=== PATIENT | female | born 1955 | race African-American/Black ===

== ENCOUNTER 2016-12-28 19:24 | Emergency (ER) | payer OTHER ==
[~2016-12-28 19:24] MED LIST: ALLEGRA-D1 TAB.SR2 PO; ALPRAZOLAM0.5 MG PO; AMOXICILLIN PO; AMOXICILLIN500 M1 PO; ATARAX PO; AUGMENTIN PO; AUGMENTIN875 MG PO; BENTYL20 MG PO; COLACE PO; DICLOFENAC PO; DIPHENHYDRAMINE50 MG PO; FLEXERIL10 M1 PO; FLEXERIL10 MG PO; FLONASE16 GM; IBUPROFEN800 MG PO; INDOMETHACIN25 MG PO; K-DUR20 ME1 PO; MEDROL DOSEPAK4 MG PO; MIRALAX17 G1 PO; MIRALAX17 GM DOB; NORCO 5/325 TAB1 TAB PO; PERCOCET PO; PHENERGAN25 MG PO; PREDNISONE PO; VICODIN 5/500 T1 TAB PO; XANAX0.5 MG PO
== END 2016-12-28 21:59 | disposition home or self-care (01) ==
LOC: CED 19:24
DX: K59.00 Constipation, unspecified (principal); I10 Essential (primary) hypertension; F17.200 Nicotine dependence, unspecified, uncomplicated
CPT/HCPCS: 99283

== ENCOUNTER 2017-01-09 20:16 | Emergency (ER) | payer OTHER | END 2017-01-09 23:46 | disposition home or self-care (01) | LOC: CED 20:16 | DX: F41.0 Panic disorder [episodic paroxysmal anxiety] (principal); I10 Essential (primary) hypertension; F31.9 Bipolar disorder, unspecified; F17.210 Nicotine dependence, cigarettes, uncomplicated; Z90.710 Acquired absence of both cervix and uterus; Z90.89 Acquired absence of other organs; Z98.51 Tubal ligation status | CPT/HCPCS: 96372; 99284; J1200 ==

== ENCOUNTER 2017-01-13 10:52 | Emergency (ER) | payer OTHER | END 2017-01-13 12:08 | disposition left against medical advice (07) | LOC: CED 10:52 | DX: F31.9 Bipolar disorder, unspecified (principal); F41.9 Anxiety disorder, unspecified | CPT/HCPCS: 99283 ==

== ENCOUNTER 2017-01-16 19:38 | Emergency (ER) | payer OTHER ==
[2017-01-16 21:19] LABS: BUN/CREATININE RATIO 11.42; CALCIUM SERUM 9.7 mg/dL (8.4-10.2); CREATININE SERUM 0.7 mg/dL (0.6-1.4); GLOM FILT RATE Estimated 109.9 mL/min (>60)
[2017-01-16 21:20] LABS: POTASSIUM 2.8 mmol/L (3.5-5.1)
== END 2017-01-16 22:17 | disposition home or self-care (01) ==
LOC: CED 19:38
PROVIDERS: Emergency Medicine
DX: F41.1 Generalized anxiety disorder (principal); E87.6 Hypokalemia; I10 Essential (primary) hypertension; F17.200 Nicotine dependence, unspecified, uncomplicated; F31.9 Bipolar disorder, unspecified
CPT/HCPCS: 36415; 80048; 80178; 99283

== ENCOUNTER 2017-01-20 17:00 | Inpatient (IN) | payer OTHER ==
--- NOTE | ~2017-01-20 | PN ---
Unit #: [id number] #: [id number] Patient: BARBARA NIELSEN [id number] [facility] [address] [place] [address] [id number] I MR#: [id number] NAME: BARBARA NIELSEN ROOM: P132 Age: Sex: F Admission Date: 01/20/2017 : 1955 Attending Physician: Steven León M.D. Admitting Physician: Steven León M.D. Primary Care Physician: David Jaquez Jr., A.PBrannonRLigia LUTZ PROGRESS NOTES ATTN. DR. LEÓN : THE COMPLETE DICTATION WAS NOT RECEIVED BY ACCOUNTING ADVISORY SERVICES MANAGER. PLEASE DICTATE THE REMAINDER AN ADDENDUM. IF YOU HAVE ANY QUESTIONS, PLEASE CONTACT THE ACCOUNTING ADVISORY SERVICES MANAGER OFFICE AT [phone]. WE APOLOGIZE FOR THE INCONVENIENCE. DATE January 23, 2017 DISCUSSION Ms. Nielsen is a 61-year-old female, with mood disorder, and psychosis, who was seen today and chart was reviewed and the case was discussed with the staff. She has been doing fairly well with no agitation or irritability, but has been needing constant redirection, she has not shown any agitation, or aggression. The patient has been taking the medications and tolerating them fairly well. MENTAL STATUS EXAMINATION Middle-aged female DICTATION ENDED ABRUPTLY Dictated by... Steven León M.D. LA/srikanth TD: 01/24/2017 08:30 JOB #: [id number] NELDA PROGRESS NOTES Page 1 of 1 X Steven León MD X PROGRESS NOTE
--- NOTE | ~2017-01-20 | DS ---
Unit #: [id number] #: [id number] Patient: BARBARA NIELSEN [id number] [facility] [place] [address] [id number] I MR#: [id number] NAME: BARBARA NIELSEN ROOM: [facility] Age: 61 Sex: F Admission Date: 01/20/2017 : 1955 Discharge Date: 01/24/2017 Attending Physician: Steven León M.D. Primary Care Physician: David Jaquez Jr., A.P.R.N. DISCHARGE SUMMARY IDENTIFYING DATA Ms. Nielsen is a 61-year-old single female, who is a resident of [place], [place], and was brought to the hospital by her family. DISCHARGE DIAGNOSES Psychiatric: Bipolar disorder, most recent episode manic, with psychosis. Medical: Dyslipidemia. Stressors: Moderate psychosocial stressors. HISTORY OF PRESENT ILLNESS Please see initial psychiatric evaluation for details. PAST PSYCHIATRIC HISTORY Please see initial psychiatric evaluation for details. PAST MEDICAL HISTORY Please see initial psychiatric evaluation for details. HOSPITAL COURSE The patient was admitted to the adult psychiatric unit at [facility] and was oriented to the hospital environment. Routine p.r.n. medications were initiated, and she was started back on her home medications and medications were adjusted as the patient was seen to be manic and psychotic and as such, Seroquel was increased to 100 mg and lithium was also increased to 450 mg b.i.d., and she was closely monitored. She was taking the medications regularly and was tolerating them fairly well and was able to show a decent and therapeutic response with improvement of kurt and psychosis. No agitation or aggression was noted and the patient was not seen to be danger to self or anyone else, and as such, it was decided that she will be discharged home and will continue treatment on an outpatient basis. DISCHARGE MEDICATIONS Ucon 450 mg b.i.d. and Seroquel 100 mg at bedtime. DISCHARGE CONDITION Stable. PROGNOSIS Fair. Dictated by... Unit #: [id number] #: [id number] Patient: BARBARA NIELSEN Steven León M.D. IAA/modl TD: 01/25/2017 02:02 JOB #: [id number] DISCHARGE SUMMARY Page 1 of 1 X Steven León MD DISCHARGE SUMMARY
--- NOTE | ~2017-01-20 | PA ---
Unit #: [id number] #: [id number] Patient: BARBARA NIELSEN [id number] [facility] [address] [place] [address] [id number] I MR#: [id number] NAME: BARBARA NIELSEN ROOM: 32 Age: 61 Sex: F Admission Date: 01/20/2017 : 1955 Date of Assessment: 01/21/2017 Attending Physician: Steven León M.D. Admitting Physician: Steven León M.D. Primary Care Physician: David Jaquez Jr., A.P.R.N. PSYCHIATRIC ASSESSMENT DATE OF SERVICE 01/21/2017. IDENTIFYING DATA Ms. Nielsen is a 61-year-old single female, who is a resident of [place], [place], and was brought to the hospital by her family. CHIEF COMPLAINT "I've bipolar disorder." HISTORY OF PRESENT ILLNESS Ms. Nielsen is a 61-year-old female with history of bipolar disorder, who was brought into the hospital by her family and the patient stated that she has bipolar disorder and medications were changed about 15 days ago while she was at the [facility] and since then, she has been home and she has been crying daily and has not been able to complete daily living tasks and she stated that she has been aggressive with the family and saying things that hurts her feelings and stated that she has not been able to sleep regularly. She stated that she is afraid to eat because she is afraid that it will not come out of her body and stated that this morning she woke up and her mind left and stated that she did not know who she was and was fearful that her mind would not return. The patient stated that her mind came back a short time later and she was thankful. She was seen to be acutely psychotic and in a manic state with pressured speech, flight of ideas, looseness of associations, significant delusional behavior and was not functioning very well, and as such, a recommendation for inpatient level of care for safety and stabilization was made and the patient was transferred to us. SUBSTANCE ABUSE HISTORY The patient denies any history of alcohol or drug abuse. PAST PSYCHIATRIC HISTORY The patient has had a history of inpatient psychiatric hospitalization at [facility] and other facilities, and currently, has been seeing Dr. Palm on an outpatient basis, and review of the medical records indicate that she is on a combination of psychotropic medications, but does not appear to be showing a therapeutic response to the medications. PAST MEDICAL HISTORY The patient's medical history is significant for chronic pain and Unit #: [id number] #: [id number] Patient: BARBARA NIELSEN dyslipidemia. PERSONAL AND SOCIAL HISTORY A 61-year-old female, who reports that she is single, unemployed, and lives at home by herself and has poor social support system. MENTAL STATUS EXAMINATION Middle-aged -[place] female, who was casually dressed with fair personal hygiene, appears to be in no acute distress or discomfort. She was awake and alert with impaired attention and concentration. Her mood was anxious with a congruent affect. Her speech was slow and restricted in content. Her thought processes were disorganized with some looseness of associations and flight of ideas and paranoid ideations and delusional behavior. Her insight and judgment remain significantly impaired. DIAGNOSTIC IMPRESSION Psychiatric: Bipolar disorder, most recent episode manic and acute psychosis. Medical: Dyslipidemia and chronic pain. Stressors: Moderate psychosocial stressors. TREATMENT PLAN 1. The patient has presented with a history of mood disorder and psychosis and has been decompensating and will need inpatient hospitalization for safety and stabilization. We will start her back on her home medications. We will adjust the medications and monitor response. 2. Supportive therapy was provided to the patient. 3. Safe, structured, and nourishing environment will be provided. ESTIMATED LENGTH OF STAY 5 to 7 days. ABILITY TO HELP SELF Limited. WILLINGNESS TO HELP SELF The patient appears to be willing to help self. STRENGTHS 1. Communicative. 2. Cooperative. PROBLEMS 1. Chronic dysphoric symptoms. 2. Poor social support system. DISCHARGE CRITERIA This will be contingent upon the patient's ability to show resolution of her kurt and psychosis and her ability to stay safe to herself, particularly after discharge from the hospital. Dictated by... Marcus Fine/jsoh Unit #: [id number] #: [id number] Patient: BARBARA NIELSEN TD: 01/21/2017 13:25 JOB #: [id number] PSYCHIATRIC ASSESSMENT Page 1 of 1 X Steven León MD PSYCHIATRIC ASSESSMENT
--- NOTE | ~2017-01-20 | PN ---
Unit #: [id number] #: [id number] Patient: BARBARA NIELSEN [id number] [facility] [address] [place] [address] [id number] I MR#: [id number] NAME: BARBARA NIELSEN ROOM: 32 Age: 61 Sex: F Admission Date: 01/20/2017 : 1955 Attending Physician: Steven León M.D. Admitting Physician: Steven León M.D. Primary Care Physician: Chapito Rangel Jr. PROGRESS NOTES DATE 01/22/2017 DISCUSSION Ms. Nielsen is a 61-year-old female who was seen today and chart was reviewed and case was discussed with the staff. She has been anxious, withdrawn and rather seclusive to herself and has been exhibiting bizarre behavior with disorganized thoughts increasing. Meanwhile, she has been taking the medications and tolerating them fairly well with no reported side effects. MENTAL STATUS EXAMINATION Middle-aged female who was casually dressed with fair personal hygiene, appears to be in no acute distress or discomfort. She was awake and alert with impaired attention and concentration. Her mood was anxious with congruent affect. Her speech was slow and restricted in content. Her thought processes were disorganized with some looseness of associations. Her insight and judgement remains significantly impaired. TREATMENT PLAN 1. We will continue her on her current medications and treatment protocol. We will monitor her response to the medication and make further adjustments as needed. 2. We will continue to follow up. Dictated by... Marcus Fine/jc TD: 01/23/2017 04:16 JOB #: [id number] Unit #: [id number] #: [id number] Patient: BARBARA NIELSEN PROGRESS NOTES Page 1 of 1 X Steven León MD X PROGRESS NOTE
--- NOTE | ~2017-01-20 | TN ---
Unit #: [id number] #: [id number] Patient: BARBARA NIELSEN [id number] [facility] [place] [address] [id number] I MR#: [id number] NAME: BARBARA NIELSEN ROOM: 32 Age: 61 Sex: F Admission Date: 01/20/2017 : 1955 Discharge Date: 01/24/2017 Attending Physician: Steven León M.D. Primary Care Physician: David Jaquez Jr., A.PBrannonRLigia LOC TRANSFER NOTE DATE OF SERVICE: 01/25/2017 HISTORY OF PRESENT ILLNESS Ms. Nielsen is a 61-year-old single female, who was stepped down to the outpatient treatment program from the adult inpatient psychiatric unit at [facility], where she was hospitalized under my care from 01/20/2017 to 01/24/2017. She was brought to the hospital by her family and it was noted that she was recently hospitalized at [facility], and got out and did not do well in the home environment and was brought back to the hospital; however, her stay was brief as the patient was insisting on wanting to leave. Her medications were adjusted and lithium was increased as the patient was having some significant mood swings. It was also noticed that she has a history of benzodiazepine dependence and has been seeing a psychiatrist who was giving her Xanax and she has been taking them regularly and having some issues with that and then she was going to the ER and other facilities and getting Ativan and other prescriptions of benzodiazepines and mixing them together and having some cognitive impairment and mood instability and as such, she was taken off the Xanax. She now brought herself back and was seen to be tearful and was having a meltdown, stating that she needs to have Xanax and asking for Xanax and at the same time, stated that her anxiety is worse, so she was unable to identify any triggers or stressors and once again, it appears that as soon as she got out of the hospital and went to the home environment, she did not do very well, even though in the hospital she was doing really good and now has been making statements maybe she should have stayed a little bit longer, even though she was pushing to leave while she was on the unit; however, she denies any suicidal ideations, intent, or plan. SUBSTANCE ABUSE HISTORY The patient denies any alcohol or drug abuse. PAST PSYCHIATRIC HISTORY The patient has had history of inpatient psychiatric hospitalizations across different facilities including [facility], and has been diagnosed and treated for bipolar disorder and is currently on lithium and BuSpar. PAST MEDICAL HISTORY Significant for dyslipidemia and hypertension. ALLERGIES No known medication allergies. Unit #: [id number] #: [id number] Patient: BARBARA NIELSEN PERSONAL AND SOCIAL HISTORY A 61-year-old female, who reports that she lives at home with her daughter and is single and unemployed and has fairly decent social support system. MENTAL STATUS EXAMINATION Middle-aged female who was casually dressed with fair personal hygiene, appears to be in no acute distress or discomfort. She was awake and alert on interaction with intact orientation to time, place, and person. Her mood was anxious and depressed with congruent affect. Her speech was slow and restricted in content. Her thought processes were disorganized with some looseness of associations and flight of ideas. Her insight and judgment remain significantly impaired. DIAGNOSTIC IMPRESSION Psychiatric: Bipolar disorder, most recent episode depressed, recurrent, moderate, without psychotic features. Medical: Dyslipidemia and asthma. Stressors: Moderate psychosocial stressors. TREATMENT PLAN 1. The patient has presented with history of mood disorder, and has been decompensating. We will recommend enrolling her into the outpatient treatment program and maintaining her on her current medications. We will adjust the medications to address anxiety and then advised her to stay abstinent from benzodiazepines. 2. Supportive therapy was provided to the patient. 3. Safe, structured, and nourishing environment will be provided. ESTIMATED LENGTH OF STAY 14 to 21 days. ABILITY TO HELP SELF Limited. WILLINGNESS TO HELP SELF The patient appears to be willing to help self. STRENGTHS 1. Communicative. 2. Cooperative. PROBLEMS 1. Chronic dysphoric symptoms. 2. Poor social support system. DISCHARGE CRITERIA This will be contingent upon the patient's ability to show resolution of her depression and anxiety and her ability to stay safe to herself, particularly after discharge from the program. Dictated by... Steven León M.D. LA/josh TD: 01/26/2017 06:26 Unit #: [id number] #: [id number] Patient: BARBARA NIELSEN JOB #: [id number] LOC TRANSFER NOTE Page 1 of 1 X Steven León MD X LOC TRANSFER NOTE
--- NOTE | ~2017-01-20 | HP ---
Unit #: [id number] #: [id number] Patient: BARBARA MANTILLA [id number] [place] [address] [id number] MR#: [id number] NAME: BARBARA MANTILLA ROOM: 32 Age: 61 Sex: F Admission Date: 01/20/2017 : 1955 Attending Physician: Steven León M.D. Admitting Physician: Steven León M.D. Primary Care Physician: David Jaquez Jr., A.P.R.N. HISTORY AND PHYSICAL HISTORY OF PRESENT ILLNESS The patient is a 61-year-old female admitted to [address] [place] [address] on 01/20/2017 for psychosis. PAST MEDICAL HISTORY 1. Obesity 2. Hypertension 3. Allergies 4. Low back pain PAST SURGICAL HISTORY The patient denies. SOCIAL HISTORY She is disabled. She smokes a half pack of cigarettes daily. Denies alcohol and drug use. FAMILY MEDICAL HISTORY Noncontributory. ALLERGIES No known drug allergies. CURRENT MEDICATIONS 1. Seroquel 2. Xanax 3. Nunez 4. Triamterene 5. HCTZ 6. Flonase 7. Breo REVIEW OF SYSTEMS CONSTITUTIONAL: No fever or chills. HEENT: Denies any sore throat, ear pain or runny nose. CARDIOVASCULAR: Denies chest pain, irregular heart rhythm or palpitations. CHEST: Denies shortness of breath or cough. No hemoptysis. GASTROINTESTINAL: Denies nausea, vomiting, diarrhea or chronic constipation. ENDOCRINE: Denies history of increased thirst or urination. No recent significant weight loss or gain. GENITOURINARY: Denies dysuria, frequency, or hematuria. SKIN: Denies any rashes. Unit #: [id number] #: [id number] Patient: BARBARA MANTILLA HEMATOLOGIC: Denies history of increased bleeding or bruising. MUSCULOSKELETAL: Denies any hot, swollen joints. No generalized muscle pain. NEUROLOGIC: Denies problems with vision or speech. No frequent, severe headaches. No numbness, tingling or weakness in any extremities. Denies loss of bladder or bowel control. PHYSICAL EXAM GENERAL: She is awake, alert and oriented in no acute distress. VITAL SIGNS: Temperature 99.7, heart rate 85, respiration 20, blood pressure 128/93. HEIGHT: 5'4". WEIGHT: 234 pounds. SKIN: Warm and dry without rash or lesion. HEENT: Normocephalic. TMs not viewed. Oral and nasal passages clear. Conjunctivae clear. PERRLA. EOMs intact. NECK: Supple without lymphadenopathy or thyromegaly. HEART: Regular rate and rhythm without murmur. LUNGS: Clear. ABDOMEN: Soft, nontender. : Not done. EXTREMITIES: No evidence of cyanosis, clubbing or edema. Moves all without focal deficit. NEUROLOGICAL: Grossly within normal limits. Cranial Nerves: II: Visual brown are intact. III, IV AND : Extraocular movements are intact. Pupils are equal, round and reactive to light. V: Facial sensation is grossly normal. VII: Facial movements and expression are normal. VIII: Auditory acuity grossly intact. IX, X: Uvula is midline. Phonation is normal. XI: Patient shrugs shoulders and turns head normally. XII: Tongue protrudes in the midline. Sensory and Motor Function: Sensory and motor sensation is grossly normal. Motor: moves all extremities well. IMPRESSION 1. Psychiatric admission. 2. Obesity. 3. Hypertension. 4. Allergies. 5. Low back pain. RECOMMENDATIONS Psychiatric per psychiatrist. MEDICAL: No contraindication to participate in facility activities. MEDICAL PROGNOSIS Good. MEDICAL CONDITION Stable. Dictated by... Unit #: [id number] #: [id number] Patient: BARBARA MANTILLA Chapito La/jc TD: 01/22/2017 05:20 JOB #: [id number] HISTORY AND PHYSICAL Page 1 of 1 X ARNAUD CORREA APRN X HISTORY AND PHYSICAL
[2017-01-21 11:29] LABS: BASOPHIL# 0.1 X10e3 (0-0.3); BASOPHIL% 0.8 % (0-2.5); EOSINOPHIL# 0.4 X10e3 (0-0.7); EOSINOPHIL% 2.9 % (0.0-7.0); HEMATOCRIT 39.9 % (35.0-45.0); HEMOGLOBIN 12.4 gm/dL (12.0-16.0); LYMPHOCYTE# 4.9 X10e3 (1.0-3.5); LYMPHOCYTE% 40.8 % (17.0-45.0); MEAN CELL VOLUME 85.9 FL (83-96); MEAN CORPUSCULAR HEMOGLOBIN 26.7 PG (28-34); MEAN PLATELET VOLUME 8.8 FL (6.5-11.5); MONOCYTE# 0.8 X10e3 (0-1.0); MONOCYTE% 6.9 % (3.0-12.0); NEUTROPHIL# 5.8 X10e3 (1.5-7.1); NEUTROPHIL% 48.6 % (40-75); PLATELET COUNT 289 X10e3 (140-420); RED BLOOD COUNT 4.65 X10e (3.90-5.30); RED CELL DISTRIBUTION WIDTH 14.6 % (11.0-15.5)
[2017-01-21 11:33] LABS: DIFF IND NO
[2017-01-21 11:52] LABS: BILIRUBIN,TOTAL 0.5 mg/dL (0.2-2.0); CREATININE SERUM 0.7 mg/dL (0.6-1.4); GLOM FILT RATE Estimated 109.9 mL/min (>60); POTASSIUM 3.6 mmol/L (3.5-5.1); PROTEIN TOTAL SERUM 7.4 g/dL (6.0-8.3)
== END 2017-01-24 10:50 | DRG 885 ==
LOC: P1S 17:28
PROVIDERS: Psychiatry & Neurology Psychiatry
DX: F31.2 Bipolar disorder, current episode manic severe with psychotic features (principal); E78.5 Hyperlipidemia, unspecified; G89.29 Other chronic pain
CPT/HCPCS: 80053; 80178; 85025

== ENCOUNTER 2017-01-26 22:56 | Emergency (ER) | payer OTHER | END 2017-01-27 02:00 | disposition home or self-care (01) | LOC: CED 22:56 | DX: F41.9 Anxiety disorder, unspecified (principal); F31.9 Bipolar disorder, unspecified; F17.200 Nicotine dependence, unspecified, uncomplicated | CPT/HCPCS: 99283 ==

== ENCOUNTER 2017-01-27 10:51 | Emergency (ER) | payer OTHER ==
[~2017-01-27] VITALS: Ht 162.6 cm; Wt 106.1 kg
== END 2017-01-27 13:13 | disposition home or self-care (01) ==
LOC: CED 10:51
DX: F41.9 Anxiety disorder, unspecified (principal); F17.200 Nicotine dependence, unspecified, uncomplicated
CPT/HCPCS: 99283

== ENCOUNTER 2017-01-29 09:31 | Inpatient (IN) | payer OTHER ==
[~2017-01-29] VITALS: Ht 162.6 cm; Wt 106.1 kg
--- NOTE | ~2017-01-29 | PN ---
Unit #: [id number] #: [id number] Patient: BARBARA NIELSEN [id number] [facility] [address] [place] [address] [id number] MR#: [id number] NAME: BARBARA NIELSEN ROOM: P131 Age: 61 Sex: F Admission Date: 01/29/2017 : 1955 Attending Physician: Steven León M.D. Admitting Physician: Steven León M.D. Primary Care Physician: Chapito Rangel Jr. PROGRESS NOTES DATE 01/31/2017 DISCUSSION Ms. Nielsen is a 61-year-old female with mood disorder and psychosis who was seen today and chart was reviewed and case was discussed with the staff. She has been anxious, withdrawn and rather seclusive to herself. Meanwhile, she has been cooperative with treatment recommendations and has been taking medications and tolerating them fairly well with no reported side effects. MENTAL STATUS EXAMINATION Middle-aged female who was casually dressed with fair personal hygiene and appears to be in no acute distress or discomfort. She was awake and alert with impaired attention and concentration. Her mood was anxious with congruent affect. She denies any suicidal or homicidal ideation. Her insight and judgement remains slightly impaired. TREATMENT PLAN 1. Will continue on current medications and treatment protocol. Will monitor her response to the medications and make needed. 2. Will continue to follow up. Dictated by... Marcus Fine/shiva TD: 01/31/2017 15:18 JOB #: [id number] Unit #: [id number] #: [id number] Patient: BARBARA NIELSEN PROGRESS NOTES Page 1 of 1 X Steven León MD X PROGRESS NOTE
--- NOTE | ~2017-01-29 | PA ---
Unit #: [id number] #: [id number] Patient: [facility]ELSEN [id number] [facility] [address] [place] [address] [id number] I MR#: [id number] NAME: BARBARA NIELSEN ROOM: P131 Age: 61 Sex: F Admission Date: 01/29/2017 : 1955 Date of Assessment: Attending Physician: Steven León M.D. Admitting Physician: Steven León M.D. Primary Care Physician: David Jaquez Jr., A.P.R.N. PSYCHIATRIC ASSESSMENT IDENTIFYING DATA Ms. Nielsen is a 61-year-old, single, disabled, female, who is a resident of [place], [place], and was self-referred to the hospital on a voluntary basis and was stepped up to the inpatient unit from the intensive outpatient treatment program. CHIEF COMPLAINT "I feel like I'm dying." HISTORY OF PRESENT ILLNESS Ms. Nielsen is a 61-year-old female with a history of mood disorder, who was recently discharged from care and was stepped down to the outpatient treatment program. However, the patient was seen to be decompensating, has been running to the emergency room repeatedly stating that she cannot swallow and medical workup has revealed no abnormality and she has been having a meltdown with crying spells, and was hysterical, stating that she feels like she is dying, she cannot swallow and the patient stated that she has been aggressive with the family and saying that this hurts her feelings. She has not been able to sleep and that she is afraid to eat because she is afraid it will not come out of her body and was seen to be acutely psychotic with bizarre behavior and expressing feelings of hopelessness and helplessness, and suicidal ideation, repeatedly going to the emergency room and not functioning and failing out intensive outpatient treatment program and as such, recommendation for inpatient level of care for safety and stabilization was made and the patient was stepped up to the inpatient unit. SUBSTANCE ABUSE HISTORY The patient denies any alcohol or drug abuse. PAST PSYCHIATRIC HISTORY The patient has had a history of [facility] and has been diagnosed and treated for bipolar disorder. Review of the medical records indicate that she is currently on lithium and Seroquel, but has stopped taking her Seroquel stating that she believes that she will not be able to swallow. PAST MEDICAL HISTORY The patient's medical history is significant for asthma. ALLERGIES No known medication allergies. Unit #: [id number] #: [id number] Patient: BARBARA NIELSEN PERSONAL AND SOCIAL HISTORY A 61-year-old white female, who reports that she is single, unemployed, and disabled, and lives with her family and has fairly decent social support system. MENTAL STATUS EXAMINATION Middle-aged female, who was casually dressed with fair personal hygiene, appears to be in no acute distress or discomfort. She was awake and alert on interaction with intact orientation. Her mood was anxious and depressed with congruent affect. Her speech was slow and restricted in content. Her thought processes were disorganized with some looseness of associations and flight of ideas, paranoid ideations and delusional behavior. Her insight and judgment remain significantly impaired. DIAGNOSTIC IMPRESSION Psychiatric: Bipolar disorder, most recent episode depressed, recurrent, moderate, with psychosis. Medical: Asthma. Stressors: Moderate psychosocial stressors. TREATMENT PLAN 1. The patient has presented with a history of mood disorder and substance abuse and has been decompensating and will need inpatient hospitalization for safety and stabilization. We will start her back on her home medications. We will adjust her medications and monitor response. 2. Supportive therapy was provided to the patient. 3. Safe, structured, and nourishing environment will be provided. ESTIMATED LENGTH OF STAY 5 to 7 days. ABILITY TO HELP SELF Limited. WILLINGNESS TO HELP SELF The patient appears to be willing to help self. STRENGTHS 1. Communicative. 2. Cooperative. PROBLEMS 1. Chronic dysphoric symptoms. 2. Poor social support system. DISCHARGE CRITERIA This will be contingent upon the patient's ability to show resolution of her depression and psychosis and her ability to stay safe to herself, particularly after discharge from the hospital. Dictated by... Steven León M.D. Unit #: [id number] #: [id number] Patient: BARBARA NIELSEN IAA/modl TD: 01/30/2017 23:07 JOB #: [id number] PSYCHIATRIC ASSESSMENT Page 1 of 1 X Steven León MD PSYCHIATRIC ASSESSMENT
--- NOTE | ~2017-01-29 | DS ---
Unit #: [id number] #: [id number] Patient: BARBARA NIELSEN [id number] [facility] [address] [place] [address] [id number] MR#: [id number] NAME: BARBARA NIELSEN ROOM: [facility] Age: 61 Sex: F Admission Date: 01/29/2017 : 1955 Discharge Date: Attending Physician: Steven León M.D. Primary Care Physician: David Jaquez Jr., A.P.R.N. DISCHARGE SUMMARY IDENTIFYING DATA Ms. Nielsen is a 61-year-old female, who was stepped up to the inpatient unit from the intensive outpatient treatment program. DISCHARGE DIAGNOSES Psychiatric: Bipolar disorder, most recent episode depressed, recurrent, moderate, without psychotic features. Medical: Asthma. Stressors: Mild psychosocial stressors. HISTORY OF PRESENT ILLNESS Please see initial psychiatric evaluation for details. PAST PSYCHIATRIC HISTORY Please see initial psychiatric evaluation for details. PAST MEDICAL HISTORY Please see initial psychiatric evaluation for details. HOSPITAL COURSE The patient was admitted to the adult psychiatric unit at [facility] and was oriented to the hospital environment. Routine p.r.n. medications were initiated, and she was started back on her home medication and she was refusing to take Seroquel which was then switched to Abilify; however, the patient was seen to be exhibiting very defiant behavior and refusing to take Abilify as well, stating having some vague nonspecific side effects which could not even been noticed; however, she was denying any suicidal ideations, intent, or plan and was wanting to leave the hospital and was not meeting criteria for involuntary psychiatric hospitalization and as such, it was decided that she will be discharged home and will continue treatment on an outpatient basis. DISCHARGE MEDICATIONS None. DISCHARGE CONDITION Stable. PROGNOSIS Guarded. Dictated by... Steven León M.D. Unit #: [id number] #: [id number] Patient: BARBARA NIELSEN IAA/modl TD: 02/02/2017 07:30 JOB #: [id number] DISCHARGE SUMMARY Page 1 of 1 X Steven León MD X DISCHARGE SUMMARY
--- NOTE | ~2017-01-29 | CO ---
Unit #: [id number] #: [id number] Patient: GLORIA MANTILLA [id number] [place] [address] [id number] MR#: [id number] NAME: GLORIA MANTILLA ROOM: 31 Age: 61 Sex: F Admission Date: 01/29/2017 : 1955 Attending Physician: Steven León M.D. Primary Care Physician: David Jaquez Jr., A.P.R.[place]. Consultation Date: 01/31/2017 CONSULTATION REPORT HISTORY OF PRESENT ILLNESS Gloria reports a history of chronic constipation. Her last bowel movement was 4 days ago and she is having abdominal pain and difficulty eating due to no bowel movements. She does report she is passing gas and has not had any diarrhea. She has taken milk of magnesia and Dulcolax without any results and in the past, she had to have enemas to relieve her constipation. She has no other complaints. PHYSICAL EXAMINATION CARDIAC: Regular rate and rhythm. No murmurs, gallops, or rubs. RESPIRATORY: Clear to auscultation bilaterally. ABDOMEN: Bowel sounds positive in all 4 quadrants. No abdominal tenderness to palpation. No CVA tenderness or flank pain. Abdomen is soft and nondistended. ASSESSMENT AND PLAN Constipation. We will continue with milk of magnesia and Dulcolax. The patient was encouraged to drink water and avoid caffeine. We will also give her Fleet enema tomorrow after breakfast if no bowel movement throughout the night. Dictated by... Chapito Hernandez/josh TD: 02/01/2017 03:52 JOB #: [id number] CONSULTATION REPORT Page 1 of 1 X LYUDMILA PEDROZA APRN X CONSULTATION REPORT
--- NOTE | ~2017-01-29 | HP ---
Unit #: [id number] #: [id number] Patient: GLORIA MANTILLA [id number] [place] [address] [id number] MR#: [id number] NAME: GLORIA MANTILLA ROOM: P131 Age: 61 Sex: F Admission Date: 01/29/2017 : 1955 Attending Physician: Steven León M.D. Admitting Physician: Steven León M.D. Primary Care Physician: David Jaquez Jr., A.P.R.N. HISTORY AND PHYSICAL Gloria is a 61-year-old female admitted on 01/29/[address] [place] [address] for psychosis. She has multiple previous admissions for the same. I reviewed the history and physical dated from her admission on 01/20/2017 and there are no changes. Dictated by... Chapito Hernandez/jc TD: 01/30/2017 01:08 JOB #: [id number] HISTORY AND PHYSICAL Page 1 of 1 X LYUDMILA PEDROZA APRN HISTORY AND PHYSICAL
--- NOTE | ~2017-01-29 | PN ---
Unit #: [id number] #: [id number] Patient: BARBARA NIELSEN [id number] [facility] [address] [place] [address] [id number] MR#: [id number] NAME: BARBARA NIELSEN ROOM: P131 Age: 61 Sex: F Admission Date: 01/29/2017 : 1955 Attending Physician: Steven León M.D. Admitting Physician: Steven León M.D. Primary Care Physician: David Jaquez Jr., [facility] PROGRESS NOTES DATE February 01, 2017 DISCUSSION Ms. Nielsen is a 61-year-old female, who was seen today and chart was reviewed and the case was discussed with the staff. She has been anxious, withdrawn, and has been exhibiting bizarre behavior and refusing to take most of the medications and every time that she takes a medication she comes up having some side effects even though none of the side effects are noticed. She initially stopped taking her Seroquel stating that she did not like the medication, and then she was started on Abilify and now she has been refusing to take that medication as well stating that it does not make her feel right and there is Abilify add on the TV all the time and then some other lady on the unit took Abilify and she did not do well and said that she has been very intolerant to care and has been exhibiting bizarre behavior, but at the same time has been denying any suicidal or homicidal ideations even though has been asking to go home and as such will monitor her case and if the patient continues to show poor compliance with treatment recommendations we will consider discharging her and recommending outpatient treatment. Dictated by... Marcus Fine/srikanth TD: 02/02/2017 07:36 JOB #: [id number] NELDA ERWIN NOTES Page 1 of 1 X Steven León MD PROGRESS NOTE
== END 2017-02-02 10:35 | disposition home or self-care (01) | DRG 885 ==
LOC: P1S 09:40
DX: F31.5 Bipolar disorder, current episode depressed, severe, with psychotic features (principal); J45.909 Unspecified asthma, uncomplicated; K59.00 Constipation, unspecified
CPT/HCPCS: 80178